=== PATIENT | female | born 1935 | race Caucasian/White ===

== ENCOUNTER → 2018-11-09 | Outpatient (CLI) | payer MEDICARE, OTHER | LOC: LAB SHORT 16:21 → LAB 16:21 | DX: L08.9 Local infection of the skin and subcutaneous tissue, unspecified (principal) | CPT/HCPCS: 87070; 87205 ==

== ENCOUNTER 2019-06-03 20:54 | Emergency (ER) | payer MEDICARE, OTHER ==
[~2019-06-03] VITALS: Ht 152.4 cm; Wt 50.8 kg
== END 2019-06-04 00:23 | disposition home or self-care (01) ==
LOC: ER 20:54
DX: M54.5 Low back pain (principal); M54.6 Pain in thoracic spine; M19.90 Unspecified osteoarthritis, unspecified site; Z87.891 Personal history of nicotine dependence; W19.XXXA Unspecified fall, initial encounter
CPT/HCPCS: 72070; 72100; 72170; 99283-25; A9270; A9270-GY

== ENCOUNTER 2019-07-15 11:24 | Emergency (ER) | payer MEDICARE, OTHER ==
[~2019-07-15] VITALS: Ht 160 cm; Wt 51.5 kg
[2019-07-15 12:01] LABS: BASOPHILS ABSOLUTE AUTO 0.05 K/mm3 (0.00-0.23); BASOPHILS PERCENT AUTO 1 % (0-2); EOSINOPHILS ABSOLUTE AUTO 0.25 K/mm3 (0.00-0.68); EOSINOPHILS PERCENT AUTO 5 % (0-6); Hematocrit 41.5 % (33.0-51.0); Hemoglobin 13.1 g/dL (11.5-16.0); IMMATURE GRAN ABSOLUTE AUTO 0.06 K/mm3 (0.00-0.10); IMMATURE GRAN PERCENT AUTO 1 % (0-1); LYMPHOCYTES ABSOLUTE AUTO 1.33 K/mm3 (0.84-5.20); LYMPHOCYTES PERCENT AUTO 26 % (21-46); MONOCYTES ABSOLUTE AUTO 0.48 K/mm3 (0.16-1.47); MONOCYTES PERCENT AUTO 9 % (4-13); Mean Corpuscular HGB 29.1 pg (26.0-34.0); Mean Corpuscular HGB Conc 31.6 g/dL (31.5-36.5); Mean Corpuscular Volume 92 fL (80-100); Mean Platelet Volume 9.8 fL (9.1-12.4); NEUTROPHILS PERCENT AUTO 58 % (41-73); Platelet Count 198 K/mm3 (150-400); RDW Coefficient Variation 18.6 % (11.7-14.2); RDW Standard Deviation 62.4 fL (35.1-46.3); White Blood Cell Count 5.17 K/mm3 (4.00-11.30)
[2019-07-15] MEDS ORDERED: OXYB5ER (12:10)
[2019-07-15] MEDS ORDERED: LOSA50 (12:11)
[2019-07-15] MEDS ORDERED: PROP120ER (12:11)
[2019-07-15 12:16] LABS: International Normalized Ratio 0.93; Prothrombin Time Results 9.9 Sec (9.7-11.5)
[2019-07-15 12:29] LABS: Alanine Aminotransfer (ALT/SGP 48 U/L (12-78); Albumin/Globulin Ratio 1.2 (0.8-1.8); Alk Phos 93 U/L (50-136); Anion Gap 6 mmol/L (6-16); Aspartate Aminotrans (AST/SGOT 38 U/L (12-37); Bilirubin, Total 0.5 mg/dL (0.1-1.0); Blood Urea Nitrogen 17 mg/dL (8-24); Bun/Creatinine Ratio 23.5 (12.0-20.0); CO2, Blood 30 mmol/L (21-32); Calcium, Blood 9.8 mg/dL (8.5-10.1); Chloride, Blood 110 mmol/L (98-108); Creatinine, Blood 0.72 mg/dL (0.40-1.00); Globulin, Blood 3.4 g/dL (2.2-4.0); Glomerular Filtration Rate >60 (60-); Glucose, Blood 88 mg/dL (70-99); Potassium, Blood 4.4 mmol/L (3.5-5.5); Sodium, Blood 146 mmol/L (136-145); Total Protein, Blood 7.4 g/dL (6.4-8.2)
== END 2019-07-15 13:45 | disposition short-term general hospital (02) ==
LOC: ER 11:24
PROVIDERS: Emergency Medicine
DX: I67.82 Cerebral ischemia (principal); R47.01 Aphasia; I48.91 Unspecified atrial fibrillation; R41.82 Altered mental status, unspecified; M19.90 Unspecified osteoarthritis, unspecified site; Z87.891 Personal history of nicotine dependence
CPT/HCPCS: 37195; 70450; 80053; 85025; 85610; 93005; 93010; 99285-25; J2997; Q3014

== ENCOUNTER 2019-11-28 10:10 | Inpatient (IN) | payer MEDICARE, OTHER ==
[~2019-11-28] VITALS: Ht 160 cm; Wt 63.5 kg
[~2019-11-28 10:10] MED LIST: LOSA50; OXYB5ER; PROP120ER
[2019-11-28] MEDS ORDERED: LOSARTAN POTASS50 MG PO (10:47)
[2019-11-28] MEDS ORDERED: ATORVASTATIN CA20 MG PO (10:48)
[2019-11-28] MEDS ORDERED: PLAVIX75 MG PO (10:48)
[2019-11-28] MEDS ORDERED: METOPROLOL TART25 MG PO (10:49)
[2019-11-28 10:58] LABS: BASOPHILS ABSOLUTE AUTO 0.05 K/mm3 (0.00-0.23); BASOPHILS PERCENT AUTO 1 % (0-2); EOSINOPHILS ABSOLUTE AUTO 0.33 K/mm3 (0.00-0.68); EOSINOPHILS PERCENT AUTO 4 % (0-6); Hematocrit 36.9 % (33.0-51.0); Hemoglobin 11.5 g/dL (11.5-16.0); IMMATURE GRAN ABSOLUTE AUTO 0.03 K/mm3 (0.00-0.10); IMMATURE GRAN PERCENT AUTO 0 % (0-1); LYMPHOCYTES ABSOLUTE AUTO 0.71 K/mm3 (0.84-5.20); LYMPHOCYTES PERCENT AUTO 10 % (21-46); MONOCYTES ABSOLUTE AUTO 0.39 K/mm3 (0.16-1.47); MONOCYTES PERCENT AUTO 5 % (4-13); Mean Corpuscular HGB 29.1 pg (26.0-34.0); Mean Corpuscular HGB Conc 31.2 g/dL (31.5-36.5); Mean Corpuscular Volume 93 fL (80-100); Mean Platelet Volume 9.9 fL (9.1-12.4); NEUTROPHILS ABSOLUTE AUTO 5.95 K/mm3 (1.96-9.15); NEUTROPHILS PERCENT AUTO 80 % (41-73); Platelet Count 215 K/mm3 (150-400); RDW Coefficient Variation 17.2 % (11.7-14.2); RDW Standard Deviation 58.4 fL (35.1-46.3); Red Blood Cell Count 3.95 M/mm3 (3.80-5.20); White Blood Cell Count 7.46 K/mm3 (4.00-11.30)
[2019-11-28 11:12] LABS: International Normalized Ratio 0.97; Prothrombin Time Results 10.4 Sec (9.7-11.5)
[2019-11-28 11:16] LABS: Alanine Aminotransfer (ALT/SGP 23 U/L (12-78); Albumin, Blood 3.6 g/dL (3.4-5.0); Albumin/Globulin Ratio 1.3 (0.8-1.8); Alk Phos 74 U/L (50-136); Anion Gap 3 mmol/L (6-16); Aspartate Aminotrans (AST/SGOT 16 U/L (12-37); Bilirubin, Total 0.5 mg/dL (0.1-1.0); Blood Urea Nitrogen 18 mg/dL (8-24); Bun/Creatinine Ratio 22.5 (12.0-20.0); CO2, Blood 30 mmol/L (21-32); Calcium, Blood 9.2 mg/dL (8.5-10.1); Chloride, Blood 109 mmol/L (98-108); Ethanol (Alcohol), Blood, Med <3 mg/dL; Globulin, Blood 2.8 g/dL (2.2-4.0); Glomerular Filtration Rate >60 (60-); Glucose, Blood 91 mg/dL (70-99); Potassium, Blood 4.4 mmol/L (3.5-5.5); Sodium, Blood 142 mmol/L (136-145); Total Protein, Blood 6.4 g/dL (6.4-8.2)
[2019-11-28 11:39] LABS: Source, Urine Voided
[2019-11-28 11:42] LABS: Bilirubin, Urine Neg (Neg); Blood, Urine Neg (Neg); Glucose Qualitative, Urine Neg (Neg); Ketones, Urine Neg (Neg); Leukocyte Esterase, Urine Neg (Neg); Nitrite, Urine Neg (Neg); Protein, Urine Neg (Neg); Specific Gravity, Urine 1.015 (1.003-1.022); Urobilinogen, Urine NORM (Normal)
[2019-11-28 11:46] LABS: Appearance, Urine Clear (Clear); Color, Urine Yellow (P-Yellow)
--- NOTE | 2019-11-28 17:01 | NUR ---
PT ARRIVED TO THE UNIT VIA BED WITH HER DAUGHTER CHITO AT HER SIDE. COMPLEATED ADMISION HISTORY. DAUGHER WILL BRING IN HER MEDICATION LIST. DID BEDSIDE SWALLOW EVALUATION WHICH PT TOLERATED WELL WITH NO DIFFICULTIES SWALLOWING. PT HAS SOME CONFUSION. HER SPEECH AT TIMES IS CLEAR AND OTHER TIMES IS DIFFICULT TO UNDERSTAND.
--- NOTE | 2019-11-29 04:26 | NUR ---
SHIFT SUMMARY- PT. SLEPT IN SMALL INCREMENTS, BUT AWAKE MOST OF THE NIGHT. PT. HAS TREMORS AT BASELINE. 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 PT. WAS ABLE TO EXPRESS PAIN TO RT SIDE OF FACE. MEDICATED PER EMAR. APPEARED TO HAVE GOOD RELIEF. RESPOSITIONED Q2 AND FOR COMFORT. ATTENDS IN PLACE, FLUIDS INFUSING. PT. APPEARS TO BE RESTING COMFORTABLY IN BED, NO APPARENT DISTRESS NOTED. CALL LIGHT WITHIN REACH, SIDE RAILS UP X2, AND BED IN LOW POSITION. WILL CONT TO MONITOR.
[2019-11-29 05:21] LABS: BASOPHILS ABSOLUTE AUTO 0.03 K/mm3 (0.00-0.23); BASOPHILS PERCENT AUTO 0 % (0-2); EOSINOPHILS ABSOLUTE AUTO 0.04 K/mm3 (0.00-0.68); EOSINOPHILS PERCENT AUTO 0 % (0-6); Hematocrit 33.7 % (33.0-51.0); Hemoglobin 10.8 g/dL (11.5-16.0); IMMATURE GRAN ABSOLUTE AUTO 0.06 K/mm3 (0.00-0.10); IMMATURE GRAN PERCENT AUTO 1 % (0-1); LYMPHOCYTES ABSOLUTE AUTO 0.79 K/mm3 (0.84-5.20); LYMPHOCYTES PERCENT AUTO 9 % (21-46); MONOCYTES ABSOLUTE AUTO 0.63 K/mm3 (0.16-1.47); MONOCYTES PERCENT AUTO 7 % (4-13); Mean Corpuscular HGB 29.2 pg (26.0-34.0); Mean Corpuscular Volume 91 fL (80-100); NEUTROPHILS ABSOLUTE AUTO 7.58 K/mm3 (1.96-9.15); NEUTROPHILS PERCENT AUTO 83 % (41-73); Platelet Count 216 K/mm3 (150-400); RDW Coefficient Variation 17.1 % (11.7-14.2); RDW Standard Deviation 56.7 fL (35.1-46.3); White Blood Cell Count 9.13 K/mm3 (4.00-11.30)
[2019-11-29 05:52] LABS: Magnesium, Blood 2.2 mg/dL (1.6-2.4)
[2019-11-29 05:55] LABS: Alanine Aminotransfer (ALT/SGP 20 U/L (12-78); Alk Phos 70 U/L (50-136); Anion Gap 8 mmol/L (6-16); Aspartate Aminotrans (AST/SGOT 11 U/L (12-37); Bilirubin, Total 0.6 mg/dL (0.1-1.0); Blood Urea Nitrogen 9 mg/dL (8-24); Bun/Creatinine Ratio 15.1 (12.0-20.0); CO2, Blood 24 mmol/L (21-32); Calcium, Blood 8.3 mg/dL (8.5-10.1); Chloride, Blood 110 mmol/L (98-108); Cholesterol 188 mg/dL (50-200); Globulin, Blood 2.9 g/dL (2.2-4.0); Glomerular Filtration Rate >60 (60-); Glucose, Blood 94 mg/dL (70-99); HDL Cholesterol 62 mg/dL (>39); LDL/HDL RATIO 1.8; Low Density Lipoprotein Chol 113 mg/dL (0-110); Potassium, Blood 3.5 mmol/L (3.5-5.5); Sodium, Blood 142 mmol/L (136-145); Total Protein, Blood 5.9 g/dL (6.4-8.2); Triglycerides 63 mg/dL (30-160); Very Low Density Lipoprot Chol 12 mg/dL (6-32)
--- NOTE | 2019-11-29 10:48 | NUR ---
CELINA TO GIVE METOPEROL VERIFIED WITH DR. BOYD TO GIVE METOPEROL ORDERED. WILL CONTINUE TO MONITOR.
--- NOTE | 2019-11-29 11:13 | NUR ---
BEATS OF V-TACH. [employer] NOTIFIED THIS RN ABOUT V TACH LASTING APPROX 1 MINUTE. PT VITALS STABLE. PT LOOKS TIRED. NO OTHER CHANGES IN ASSESSMENT. DR. BOYD NOTIFIED. METOPEROL GIVEN. NO OTHER ORDERS AT THIS TIME. WILL CONTINUE TO MONITOR.
--- NOTE | 2019-11-29 13:18 | NUR ---
STICHES PT DAUGHTER STATES THAT PT HAS STICHES TO HER POSTERIOR L SHOULDER. DAUGHTER STATES THESE WERE SUPPOSSED TO BE TAKEN OUT LAST FRIDAY. DR. BOYD CALLED & NOTIFIED. ORDER TO TAKE OUT STICHES & COVER INCISION GIVEN. WILL CONTINUE TO MONITOR.
--- NOTE | 2019-11-29 13:56 | NUR ---
STICHES REMOVED STICHES REMOVED BY THIS RN FROM POSTERIOR L SHOULDER. PT TOLERATED WELL. SKIN LOOKS CLEAN AND PINK. FOAM PLACED FOR CUSHION. PICS TAKEN.
--- NOTE | 2019-11-29 14:49 | NUR ---
Inital spiritual care note: Mrs. Tim was awake and tried to communicate. Words are jumbled, speech slurred. It was impssoble to understand her. Her dtr, Alexandra, was at bedside and we spoke at length. She seems aware that pt may be nearing end of life, but remains hopeful pt will regain some ability through rehab. Alexandra was tearful throughout conversation and she responded well to gentle enrollment counselor regarding the spiritual aspect of end-of-life. Both pt and dtr beleive in a kind and loving God. I provided theraputic listening to life review, affirmed the obvious love of family and God, and provided prayer for a clear path at dtr's request. It was a productive visit and I will continue to see pt/family as schedule permits.
--- NOTE | 2019-11-29 15:24 | NUR ---
REQUEST FOR RECORDS. CALL MADE TO [facility] FOR DC SUMMARY, ECHO REPORT, AND CAROTID STUDIES.
--- NOTE | 2019-11-29 17:33 | NUR ---
SHIFT SUMMARY PT HAS MORE DIFFICULTY EXPRESSING SELF WHEN FIRST AWAKING. PT ABLE TO VERBALIZE A FEW WORDS AND PHRASES THIS SHIFT. PT/OT/PT WORKING WITH PT. PT DENIES PAIN AT THIS TIME. ONE CONT VOID THIS SHIFT. NO OTHER CHANGES IN ASSESSMENT AT THIS TIME. VSS. WILL CONTINUE TO MONITOR UNTIL TURNOVER IS COMPLETE.
--- NOTE | 2019-11-30 00:28 | NUR ---
RECEIVED CALL FROM TELEMETRY THAT PT. CONVERTED TO AFIB W/RATE OF [id number] @2310. BUT THEN CONVERTED BACK TO SR IN THE 60'S. PT. ASYMPTOMATIC. CALL MADE TO GUILLE BARRON NP. RECEIVED ORDER TO CONT TO MONITOR AND CALL BACK IF PT. SUSTAINED IN AFIB. CALLED TELEMETRY TO VERIFY RHYTHM. PER BRETT HANSON-Getting-in, PT. REMAINS IN SR AT THIS TIME. WILL CONT TO MONITOR. PT.
--- NOTE | 2019-11-30 05:01 | NUR ---
SHIFT SUMMARY- NO ACUTE CHANGES OVERNIGHT. PT. C/O PAIN TO THE RT NECK 1X, MEDICATED PER EMAR. PT. TOLERATED WELL AND APPEARED TO HAVE GOOD RELIEF. REPOSITIONED Q2 AND PRN FOR COMFORT. PLACED PT. ON BEDPAN, PT. UNABLE TO VOID. ATTENDS IN PLACE, PT. HAD SEVERAL FULL WET DIAPERS T/O THE SHIFT. PT. RESTING COMFORTABLY IN BED, NO APPARENT DISTRESS NOTED. CALL LIGHT WITHIN REACH AND SIDE RAILS UP X2. WILL CONT TO MONITOR.
--- NOTE | 2019-11-30 16:40 | NUR ---
SHIFT SUMMARY PT DOES WELL WITH FINGER FOODS DEPENDING ON SEVERITY OF HAND TREMOR AT MEAL TIME. FLUIDS VIA SPOON BY RN OR TECHNICAL SALES REPRESENTATIVES. PT RECEIVED BED BATH THIS SHIFT. IV FLUIDS DC'ED. OT GOT PT UP TO CHIAR THIS AM. PT TOLATATED FOR APPROX 1.5 HOURS. MECH LIFT USED TO GET BACK TO BED. NO OTHER CHANGES IN ASSESSEMENT AT THIS TIME. VSS. WILL CONTINUE TO MONITOR UNTIL TURNOVER IS COMPLETE.
--- NOTE | 2019-11-30 17:48 | NUR ---
Routine spiritual care note: No family present at time of visit. Nery was working with PT when I visited. She appears a bit better today. She was able to respond to me with one word answers to most questions/comments. She smiles easily and appeared to enjoy prayer/encouragement. I will remain available.
--- NOTE | 2019-12-01 05:05 | NUR ---
SHIFT SUMMARY- PT. SPEECH HAS IMPROVED SIGNIFICANTLY, ABLE TO EXPRESS HERSELF AND SPEAK IN FULL SENTENCES. PT. C/O PAIN TO THE RT HIP. MEDICATED PER EMAR. SLEPT COMFORTABLY DURING THE NIGHT. NO APPARENT DISTRESS NOTED. CALL LIGHT WITHIN REACH AND SIDE RAILS UP X2. WILL CONT TO MONITOR.
[2019-12-01] MEDS ORDERED: METO25ER PO (09:45)
[2019-12-01] MEDS ORDERED: ASPI81CH PO (09:46)
[2019-12-01] MEDS ORDERED: ATOR20 PO (09:46)
[2019-12-01] MEDS ORDERED: CHLO25B PO (09:46)
--- NOTE | 2019-12-01 11:55 | NUR ---
REPORT CALLED TO [facility]. DAUGHTER AT BEDSIDE. PT DISCHARGED TO [facility] VIA W/C AT 1143.
== END 2019-12-01 11:49 | DRG 65 ==
LOC: ER 10:10 → MEDS 13:24 → ENPENDDIS 12-01 09:44 → MEDS 12-01 11:49
PROVIDERS: Emergency Medicine; Nurse Practitioner Acute Care; ADMIT Hospitalist
DX: I63.9 Cerebral infarction, unspecified (principal); G81.94 Hemiplegia, unspecified affecting left nondominant side; I10 Essential (primary) hypertension; I48.0 Paroxysmal atrial fibrillation; Z66 Do not resuscitate; G25.0 Essential tremor; Z79.02 Long term (current) use of antithrombotics/antiplatelets
CPT/HCPCS: 36415; 70450; 71045; 80053; 80061; 81003; 82272; 82947; 83735; 85025; 85610; 92526; 92610; 93005; 93010; 93306; 93880; 97110; 97112; 97162; 97166; 99285-25; G0480; J1650; J3010; J7030